=== PATIENT | female | born 1955 | race Caucasian/White ===

== ENCOUNTER 2017-02-15 17:23 | Emergency (ER) | payer BC ==
[2017-02-15 17:33] VITALS: TEMP 98.1
[2017-02-15 18:02] LABS: % IMMATURE GRANULYOCYTES 0.3 % (0.0-1.1); ABSOLUTE IMMATURE GRANULOCYTES 0.03 10^3/uL (0.00-0.10); ADD DIFF? NO; ADD MORPH? NO; ADD SCAN? NO; ATYPICAL LYMPHOCYTE FLAG 10 (0-99); FRAGMENT RBC FLAG 0 (0-99); HEMATOCRIT 34.3 % (38.0-47.0); HEMOGLOBIN 10.9 g/dL (12.6-16.3); LEFT SHIFT FLG 0 (0-99); LIPEMIA HEMOLYSIS FLAG 80 (0-99); MEAN CELL HEMOGLOBIN 29.9 pg (27.9-34.1); MEAN CELL HEMOGLOBIN CONCENTR. 31.8 g/dL (32.4-36.7); MEAN CELL VOLUME 94.2 fL (81.5-99.8); MEAN PLATELET VOLUME 9.6 fL (8.7-11.7); PLATELET CLUMPS FLAG 10 (0-99); PLATELET COUNT 276 10^3/uL (150-400); RED BLOOD CELL COUNT 3.64 10^6/uL (4.18-5.33); RED CELL DISTRIBUTION WIDTH 13.2 % (11.5-15.2)
--- NOTE | 2017-02-15 18:05 | CPEKG ---
Heart Rate: 69 RR Interval: 870 P-R Interval: 132 QRSD Interval: 88 QT Interval: 404 QTC Interval: 433 P [place]: 71 QRS [place]: 68 T Wave [place]: 49 EKG Severity - NORMAL ECG - EKG Impression: SINUS RHYTHM Electronically Signed By: Eryn Oliveros 15-Feb-2017 22:09:59
[2017-02-15 18:22] LABS: ALANINE AMINOTRANSFERASE 37 IU/L (9-52); ALBUMIN 4.3 g/dL (3.5-5.0); ALKALINE PHOSPHATASE 53 IU/L (38-126); ANION GAP 12 mEq/L (8-16); ASPARTATE AMINOTRANSFERASE 36 IU/L (14-46); BILIRUBIN,TOTAL 0.3 mg/dL (0.1-1.4); CALCIUM 9.8 mg/dL (8.5-10.4); CARBON DIOXIDE 22 mEq/l (22-31); CHLORIDE 107 mEq/L (97-110); CREATININE 1.3 mg/dL (0.6-1.0); GLOMERULAR FILTRATION RATE 41; GLUCOSE 85 mg/dL (70-100); POTASSIUM 5.1 mEq/L (3.5-5.2); SODIUM 141 mEq/L (134-144); TOTAL PROTEIN 7.5 g/dL (6.3-8.2)
--- NOTE | 2017-02-15 18:26 | EDPHY ---
HPI/HX/ROS/PE/MDM Narrative: CHIEF COMPLAINT: Shortness of breath. HISTORY OF PRESENT ILLNESS: This patient is a 61 year old female with history of COPD complaining of difficulty breathing onset Sunday evening, four days ago, following inhalation of mixed cleaning agents. 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 Sunday, she flew from her home in [place], [place] to [place]. She has noted a buildup of thick greenish mucus in her nose and throat, sore sinuses, and tightness in her lungs. Her symptoms feel similar to previous episodes of bronchitis and sinusitis. She has taken Mucinex with little relief. She endorses subjective fever and diaphoresis. She is taking her usual COPD medications. She denies any symptoms prior to the chemical inhalation on Sunday. No chills, chest pain, palpitations, nausea, vomiting, diarrhea, urinary complaints, headache, lightheadedness. No personal history of cardiac disease, hypertension, clotting, or diabetes. Her twin sister has significant history for blood clots. REVIEW OF SYSTEMS: Aside from elements discussed in the HPI, a comprehensive 10-point review of systems was reviewed and is negative. PAST MEDICAL HISTORY: COPD (Ventolin, Symbicort, Spiriva). Born with heart murmur, cardiac "backflow" (Spironolactone). Arthritis. SOCIAL HISTORY: . Lives in [place], [place]. VITAL SIGNS: Reviewed by me GENERAL: Well-developed, well-nourished, reports feeling short of breath. HEENT: Atraumatic. Eyes: No icterus, no injection. Mouth: moist mucous membranes. No erythema or lesions. Neck: supple with no adenopathy. LUNGS: Diminished BS bilaterally, no wheezes, rhonchi or rales. CARDIAC: Regular rate and rhythm, no rubs, murmurs or gallops. ABDOMEN: Soft, nontender, nondistended, bowel sounds normal. BACK: No CVA tenderness. EXTREMITIES: No trauma. No edema. Range of motion is normal throughout. NEURO: Alert and oriented, grossly nonfocal. SKIN: Warm and dry, no rash. PSYCHIATRIC: Normal mentation, no agitation. Portions of this note were transcribed by a medical data analyst. I personally performed a history, physical exam, medical decision making, and confirmed accuracy of information the transcribed note. ED Course: Usually takes Augmentin for similar symptoms. Has not tried taking Flonase. Likely irritation, inflammation secondary to chemical inflammation. Plan for steroid treatment. Wait on antibiotics. Plan for DuoNeb. Oral prednisone. Chest x-ray. Labs including CBC, D-dimer, troponin. D dimer elevated. Plan for CTA. CT negative for pulmonary embolism. Concerning for 6.7mm nodule. DW patient and . They state they have previously been informed of pulmonary nodule. Discussed spiculated appearance and concern for potential malignancy. Patient will f/u on return to home. Plan to discharge home in good condition. Prescription for prednisone. Prescription for Augmentin for symptoms unresolved. Follow up with primary care. CT report and images provided, discussed importance of f/u for lung nodule. She is aware and has had followup in the past. MDM: Differential diagnosis for the patient's shortness of breath was considered including but not limited to pulmonary infectious processes, COPD exacerbation, pulmonary emboli, pulmonary edema, congestive heart failure, and cardiac causes. - Data Points Imaging: I viewed and interpreted images myself Laboratory Results: Laboratory Results 02/15/17 17:50 02/15/17 17:50 Medications Given: Discontinued Medications Albuterol (Proventil Neb) 3 ml IH EDNOW ONE Stop: 02/15/17 21:08 Last Admin: 02/15/17 21:07 Dose: 3 ml Albuterol/Ipratropium (Duoneb) 3 ml IH EDNOW ONE Stop: 02/15/17 18:55 Last Admin: 02/15/17 19:35 Dose: 3 ml Prednisone (Prednisone) 60 mg PO EDNOW ONE Stop: 02/15/17 18:56 Last Admin: 02/15/17 19:34 Dose: 60 mg General Time Seen by Provider: 02/15/17 18:16 Initial Vital Signs: Initial Vital Signs Temperature (C) 36.7 C 02/15/17 17:29 Heart Rate 73 02/15/17 17:29 Respiratory Rate 20 02/15/17 17:29 Blood Pressure 158/97 H 02/15/17 17:29 O2 Sat (%) 90 L 02/15/17 17:29 O2 Delivery Mode Room Air O2 (L/minute) 2 Allergies/Adverse Reactions: Scbljph-Eao-Ayh Reductase Inhibitor Allergy (Verified 02/15/17 17:26) Home Medications: Medication Instructions Recorded Amoxicillin/Clavulanate Pot 875 mg PO BID #14 tab 02/15/17 [Augmentin 875 MG TAB (*)] CeleBREX 02/15/17 Diclofenac Sodium 02/15/17 Fluconazole [Diflucan] 200 mg PO ONCE #1 tablet 02/15/17 Levothyroxine 02/15/17 Spiriva Handihaler 02/15/17 Spironolactone 02/15/17 Symbicort 160-4.5 Mcg Inh (*) 02/15/17 Ventolin Hfa 02/15/17 predniSONE 40 mg PO DAILY #6 tab 02/15/17 Departure - Departure Disposition: Home, Routine, Self-Care Clinical Impression: Chronic obstructive pulmonary disease with acute exacerbation, Bronchospasm, acute, Bronchitis due to fumes or vapors, acute Sinusitis Qualifiers: Sinusitis location: unspecified location Chronicity: acute Recurrence: not specified as recurrent Qualified Code(s): J01.90 - Acute sinusitis, unspecified Condition: Good Instructions: Bronchospasm (ED) Additional Instructions: 1. Take your Prednisone as prescribed to reduce inflammation. 2. Take Flonase as directed on the packaging. 3. Increase your nebulizer or inhaler use to every 4-6 hours. 4. We have provided a prescription for antibiotics which you may fill if you are not improving in the next couple of days. 5. Follow up with your primary care physician upon your return to [place]. We have referred you to our outpatient primary care doctor online project manager as well should you have further concerns while [facility]. 6. Return to the Emergency Department if you develop fever, worsening shortness of breath, chest pain, or other worsening of condition. 7. Please follow up with your primary care physician at home regarding the abnormal finding on your CT scan as we discussed. We have provided you with a copy of the CT report and a disc with the images to review with your primary care provider. Referrals: [place],PCP [Other] - As per Instructions Skye Garcia MD [Medical Doctor] - As per Instructions Prescriptions: Amoxicillin/Clavulanate Pot [Augmentin 875 MG TAB (*)] 875 mg PO BID #14 tab Fluconazole [Diflucan] 200 mg PO ONCE #1 tablet predniSONE 40 mg PO DAILY #6 tab Report Scribed for: Eryn Oliveros Report Scribed by: Lesvia Obregon Date of Report: 02/15/17 Time of Report: 18:28
[2017-02-15 18:40] VITALS: RESP 16
[2017-02-15] MEDS ORDERED: IPRATROPIUM/ALBUTEROL 3 ML DEYVIAL IH ONE (18:54)
[2017-02-15] MEDS ORDERED: predniSONE 20 MG TAB PO ONE (18:55)
[2017-02-15] MEDS ORDERED: IOPAMIDOL (ISOVUE 370) 100 ML BTL IV ONE (19:38)
[2017-02-15] MEDS ORDERED: ALBUTEROL 3 ML DEYVIAL ONE (21:05)
[2017-02-15] MEDS ORDERED: ALBUTEROL 3 ML DEYVIAL IH ONE (21:07)
[2017-02-15 21:31] VITALS: BP 140/79; PULSE 77; O2SAT 91
== END 2017-02-15 21:30 | disposition home or self-care (01) ==
DX: J44.1 Chronic obstructive pulmonary disease with (acute) exacerbation (principal); J20.9 Acute bronchitis, unspecified; J01.90 Acute sinusitis, unspecified
CPT/HCPCS: Q9967